=== PATIENT | female | born 1980 | race Caucasian/White ===

== ENCOUNTER 2017-07-21 10:58 | Emergency (ER) | payer MEDICAID ==
[~2017-07-21] VITALS: Ht 162.6 cm; Wt 70.5 kg
[~2017-07-21 10:58] MED LIST: D-ME118S6 PO; HYDR-3498 PO; LEVO500T72 PO; NAPR-260 PO
[2017-07-21 11:02] VITALS: Ht 162.6 cm; Wt 70.5 kg
[2017-07-21 12:40] LABS: URINE BLOOD (Dip) POC Negative (NEGATIVE)
[2017-07-21 12:47] LABS: BASOPHILS % 0.5 % (0.0-2.0); EOSINOPHILS # 0.1 10^3/ul (0.0-0.5); HEMOGLOBIN 12.5 g/dl (12.0-16.0); LYMPHOCYTES # 2.4 10^3/ul (0.8-2.9); LYMPHOCYTES % 37.2 % (15.0-51.0); MEAN CORPUSCULAR HEMOGLOBIN 27.5 pg (29.0-33.0); MEAN CORPUSCULAR HGB CONC 32.9 g/dl (32.0-37.0); MEAN CORPUSCULAR VOLUME 83.5 fl (82.0-101.0); MEAN PLATELET VOLUME 9.8 fl (7.4-10.4); MONOCYTE # 0.5 10^3/ul (0.3-0.9); MONOCYTES % 8.1 % (0.0-11.0); NEUTROPHIL # 3.4 10^3/ul (1.6-7.5); NEUTROPHILS % 51.9 % (39.0-77.0); PLATELET COUNT 272 10^3/UL (140-415); RED BLOOD COUNT 4.55 10^6/ul (4.20-5.40); RED CELL DISTRIBUTION WIDTH 12.4 % (11.5-14.5); WHITE BLOOD COUNT 6.5 10^3/ul (4.8-10.8)
[2017-07-21 13:08] LABS: ALBUMIN 4.6 g/dl (3.3-4.9); ALBUMIN/GLOBULIN RATIO 1.35; BILIRUBIN,INDIRECT 0.3 mg/dl (0-1.1); BILIRUBIN,TOTAL 0.3 mg/dl (0.2-1.3); CALCIUM 9.1 mg/dl (8.4-10.2); CREATININE 0.62 mg/dl (0.44-1.00)
--- NOTE | 2017-07-21 13:37 | RADRPT ---
PROCEDURE: US Abdomen (right upper quadrant). CLINICAL INDICATION: Right upper quadrant abdomen pain. TECHNIQUE: Multiple real-time longitudinal and transverse images of the right upper quadrant of th e abdomen were acquired utilizing a curved array transducer. Images were reviewed on a high-resoluti on PACS workstation. COMPARISON: None FINDINGS: The liver is normal in size and normal in echogenicity. There is no focal hepatic lesion. Color Doppler and pulsed Doppler sonography demonstrate normal a ntegrade flow in the portal vein. The gallbladder is surgically absent. The bile ducts are normal with the common bile duct measuring 5.8 mm in diameter. The visualized portions of the pancreas are unremarkable with obscuration of the tail of the pancrea s. No free fluid is present. The right kidney measures 12.0 cm. There is normal echogenicity of the right kidney. There is no perinephric fluid collection. No hydronephrosis, mass, or calculus is seen. IMPRESSION: 1. Status post cholecystectomy. 2. Otherwise normal right upper quadrant abdomen ultrasound. RPTAT: QQ .Lopez Ho MD, MD Date Time Electronically viewed and signed by .Lopez Ho MD, on 07/21/2017 13:37 .R/
--- NOTE | 2017-07-21 14:17 | ERD ---
ER Documentation Chief Complaint Date/Time DATE: 07/21/17 TIME: 14:09 Chief Complaint r.side abd pain x 5 days, denies pain with urination HPI 37 y/o female with history of cholecystectomy, present to ER, c/o sharp pain in RUQ, that has been present for more than 2 months but got worse during the last 5 days. Pain is worse after fatty meals, no radiation, no treatment attempted. Denies fever, chills, no diarrhea, melena, no nausea or vomiting ROS All systems reviewed and are negative except as per history of present illness. Medications Home Meds Active Scripts Ranitidine Hcl* (Zantac*) 150 Mg Tablet, 150 MG PO BID Y for EPIGASTRIC PAIN, # 30 TAB Prov:ENEDELIA LEE MD 07/21/17 Ibuprofen* (Motrin*) 600 Mg Tab, 600 MG PO Q8 Y for PAIN, #30 TAB Prov:ENEDELIA LEE MD 07/21/17 Dextromethorphan Hb-Promethazine Hcl (Promethazine DM Syrup) 180 Ml Syrup, 5 ML PO Q6H Y for COUGH, #4 OZ Prov:RUTH PORTILLO DO 11/29/15 Naproxen* (Naprosyn*) 500 Mg Tablet, 500 MG PO BID Y for PAIN AND/OR INFLAMMATION, #14 TAB Prov:RUTH PORTILLO DO 11/29/15 Hydrocodone Bit-Acetaminophen* (Dora*) 5-325 Mg Tab, 1 TAB PO Q6 Y for PAIN, # 7 TAB Prov:RUTH PORTILLO DO 11/29/15 Levofloxacin* (Levaquin*) 500 Mg Tablet, 500 MG PO DAILY for 7 Days, TAB Prov:RUTH PORTILLO DO 11/29/15 Allergies Allergies: Coded Allergies: No Known Allergy (Verified Allergy, Unknown, 12/09/09) PMhx/Soc Denies hx of DM, HTN, CAD Medical and Surgical Hx: pt denies Medical Hx, pt denies Surgical Hx Hx Alcohol Use: No Hx Substance Use: No Hx Tobacco Use: No Smoking Status: Never smoker Physical Exam Vitals Physical Exam Alert, in no distress Resp: Clear to auscultation bilaterally Cardio: Regular rate and rhythm, no murmurs Abd: Soft, mild tenderness to deep palpation in RUQ, non distended. Normal bowel sounds. Ramsay negative, no peritoneal signs Back: No midline or flank tenderness Ext: No cyanosis, or edema Results 24 hrs Laboratory Tests Test 07/21/17 12:30 07/21/17 12:48 White Blood Count 6.510^3/ul Red Blood Count 4.5510^6/ul Hemoglobin 12.5g/dl Hematocrit 38.0% Mean Corpuscular Volume 83.5fl Mean Corpuscular Hemoglobin 27.5pg Mean Corpuscular Hemoglobin Concent 32.9g/dl Red Cell Distribution Width 12.4% Platelet Count 78869^3/UL Mean Platelet Volume 9.8fl Neutrophils % 51.9% Lymphocytes % 37.2% Monocytes % 8.1% Eosinophils % 2.0% Basophils % 0.5% Nucleated Red Blood Cells % 0.0/100WBC Neutrophils # 3.410^3/ul Lymphocytes # 2.410^3/ul Monocytes # 0.510^3/ul Eosinophils # 0.110^3/ul Basophils # 0.010^3/ul Nucleated Red Blood Cells # 0.010^3/ul Sodium Level 140mmol/L Potassium Level 4.0mmol/L Chloride Level 107mmol/L Carbon Dioxide Level 24mmol/L Anion Gap 13 Blood Urea Nitrogen 18mg/dl Creatinine 0.62mg/dl Glucose Level 90mg/dl Calcium Level 9.1mg/dl Total Bilirubin 0.3mg/dl Direct Bilirubin 0.00mg/dl Indirect Bilirubin 0.3mg/dl Aspartate Amino Transf (AST/SGOT) 30IU/L Alanine Aminotransferase (ALT/SGPT) 32IU/L Alkaline Phosphatase 62IU/L Total Protein 8.0g/dl Albumin 4.6g/dl Globulin 3.40g/dl Albumin/Globulin Ratio 1.35 Lipase 82U/L Bedside Urine pH (LAB) 5.5 Bedside Urine Protein (LAB) 1+ Bedside Urine Glucose (UA) Negative Bedside Urine Ketones (LAB) Negative Bedside Urine Blood Negative Bedside Urine Nitrite (LAB) Negative Bedside Urine Leukocyte Esterase (L Trace Procedures/MDM Abdominal pain: low suspicion for acute abdomen. Labs reviewed. US abdomen: IMPRESSION: 1. Status post cholecystectomy. 2. Otherwise normal right upper quadrant abdomen ultrasound. Results d/w patient, start conservative management and f/u with PCP in 2-4 days Departure Diagnosis: Primary Impression: Abdominal pain Additional Impression: Hx of cholecystectomy Patient Instructions: Abdominal Pain ENEDELIA LEE MD Jul 21, 2017 14:17
[2017-07-21] MEDS ORDERED: RANI150T9 PO (14:20)
[2017-07-21] MEDS ORDERED: IBUP-1542 PO (14:20)
[2017-07-21 14:39] VITALS: BP 122/74; PULSE 79; RESP 18; TEMP 98.5
== END 2017-07-21 14:40 | disposition home or self-care (01) ==
LOC: FTE 10:58
DX: R10.11 Right upper quadrant pain (principal); Z90.49 Acquired absence of other specified parts of digestive tract
CPT/HCPCS: 76705; 80053; 81003; 83690; 85025; Z7502

== ENCOUNTER 2018-04-05 07:28 | Emergency (ER) | END 2018-04-05 10:27 | disposition home or self-care (01) ==

== ENCOUNTER 2018-10-07 06:06 | Emergency (ER) | END 2018-10-07 08:16 | disposition home or self-care (01) ==

== ENCOUNTER 2019-01-22 06:16 | Emergency (ER) | payer MEDICAID ==
[~2019-01-22] VITALS: Ht 162.6 cm; Wt 74.0 kg
[~2019-01-22 06:16] MED LIST changes: +ACET325T33 PO; +CIPR500T4 PO; +DOCU-144 PO; +IBUP-1542 PO; +LEVO500T48 PO; -LEVO500T72 PO; -NAPR-260 PO; +NAPR-985 PO; +NITR-58 PO; +RANI150T35 PO
[2019-01-22 06:20] VITALS: Ht 162.6 cm; Wt 74.0 kg
--- NOTE | 2019-01-22 06:54 | ERD ---
ER Documentation Chief Complaint Chief Complaint ap HPI The patient is a 38-year-old female, presenting to the ER because of right upper quadrant abdominal pain radiating to the right upper back intermittently that began yesterday morning. She had similar symptoms previously, denies fever, chills, neck pain, chest pain, dyspnea, vomiting, dysuria, diarrhea. She does not smoke, drink Past medical history: None Past surgical history: Cholecystectomy in 2002 ROS All systems reviewed and are negative except as per history of present illness. Medications Home Meds Active Scripts Ibuprofen* (Motrin*) 600 Mg Tab, 600 MG PO Q6H PRN for PAIN, #20 TAB Prov:KAY MONSIVAIS MD 01/22/19 Nitrofurantoin Monohyd Macrocr* (Macrobid*) 100 Mg Capsr, 100 MG PO BID for 14 Days, CAP Prov:RICHAR GONZALEZ PA-C 10/07/18 Acetaminophen* (Tylenol*) 325 Mg Tablet, 2 TAB PO Q6 PRN for PAIN AND OR ELEVATED TEMP, #20 TAB Prov:RICHAR GONZALEZ PA-C 10/07/18 Docusate Sodium* (Colace*) 100 Mg Capsule, 100 MG PO TID, #30 CAP Prov:RICHAR GONZALEZ PA-C 10/07/18 Acetaminophen* (Tylenol*) 325 Mg Tablet, 2 TAB PO Q6 PRN for PAIN AND OR ELEVATED TEMP, #20 TAB Prov:RICHAR GONZALEZ PA-C 04/05/18 Ciprofloxacin Hcl* (Ciprofloxacin Hcl*) 500 Mg Tablet, 500 MG PO BID for 7 Days, TAB Prov:RICHAR GONZALEZ PA-C 04/05/18 Ranitidine Hcl* (Zantac*) 150 Mg Tablet, 150 MG PO BID PRN for EPIGASTRIC PAIN, #30 TAB Prov:ENEDELIA LEE MD 07/21/17 Ibuprofen* (Motrin*) 600 Mg Tab, 600 MG PO Q8 PRN for PAIN, #30 TAB Prov:ENEDELIA LEE MD 07/21/17 Dextromethorphan Hb-Promethazine Hcl (Promethazine DM Syrup) 180 Ml Syrup, 5 ML PO Q6H PRN for COUGH, #4 OZ Prov:RUTH PORTILLO DO 11/29/15 Naproxen* (Naprosyn*) 500 Mg Tablet, 500 MG PO BID PRN for PAIN AND/OR INFLAMMAT ION, #14 TAB Prov:RUTH PORTILLO DO 11/29/15 Hydrocodone Bit-Acetaminophen* ([place]*) 5-325 Mg Tab, 1 TAB PO Q6 PRN for PAIN, #7 TAB Prov:RUTH PORTILLO DO 11/29/15 Levofloxacin* (Levaquin*) 500 Mg Tablet, 500 MG PO DAILY for 7 Days, TAB Prov:RUTH PORTILLO DO 11/29/15 Allergies Allergies: Coded Allergies: No Known Allergy (Verified , 01/22/19) PMhx/Soc Hx Alcohol Use: No Hx Substance Use: No Hx Tobacco Use: No Physical Exam Vitals Vital Signs Date Temp Pulse Resp B/P (MAP) Pulse Ox O2 O2 Flow FiO2 Time Delivery Rate 01/22/19 60 20 133/75 98 06:20 (94) Physical Exam Const: No acute distress. Head: Atraumatic. Eyes: Normal Conjunctiva. ENT: Normal External Ears, Nose and Mouth. Neck: Full range of motion. No meningismus. Resp: Clear to auscultation bilaterally. Cardio: Regular rate and rhythm. Abd: Soft, non distended, normal bowel sounds, mild right upper quadrant and right upper back discomfort, no right lower quadrant, rigidity, rebound tenderness Skin: No petechiae or rashes. Back: No midline or flank tenderness. Ext: No cyanosis, or edema. Neur: Awake and alert. No focal deficit Psych: Normal Mood and Affect. Result Diagram: 01/22/19 0704 01/22/19 0704 Results 24 hrs Laboratory Tests Test 01/22/19 07:02 01/22/19 07:04 Bedside Urine pH (LAB) 5.5 Bedside Urine Protein (LAB) Negative Bedside Urine Glucose (UA) Negative Bedside Urine Ketones (LAB) Negative Bedside Urine Blood Negative Bedside Urine Nitrite (LAB) Negative Bedside Urine Leukocyte Esterase (L Trace White Blood Count 5.4 10^3/ul Red Blood Count 4.33 10^6/ul Hemoglobin 11.8 g/dl Hematocrit 36.0 % Mean Corpuscular Volume 83.1 fl Mean Corpuscular Hemoglobin 27.3 pg Mean Corpuscular Hemoglobin Concent 32.8 g/dl Red Cell Distribution Width 12.3 % Platelet Count 261 10^3/UL Mean Platelet Volume 9.4 fl Immature Granulocytes % 0.400 % Neutrophils % 52.9 % Lymphocytes % 34.7 % Monocytes % 8.8 % Eosinophils % 2.8 % Basophils % 0.4 % Nucleated Red Blood Cells % 0.0 /100WBC Immature Granulocytes # 0.020 10^3/ul Neutrophils # 2.9 10^3/ul Lymphocytes # 1.9 10^3/ul Monocytes # 0.5 10^3/ul Eosinophils # 0.2 10^3/ul Basophils # 0.0 10^3/ul Nucleated Red Blood Cells # 0.0 10^3/ul Sodium Level 140 mmol/L Potassium Level 4.0 mmol/L Chloride Level 108 mmol/L Carbon Dioxide Level 26 mmol/L Anion Gap 6 Blood Urea Nitrogen 11 mg/dl Creatinine 0.59 mg/dl Est Glomerular Filtrat Rate mL/min > 60 mL/min Glucose Level 100 mg/dl Calcium Level 9.0 mg/dl Total Bilirubin 0.3 mg/dl Direct Bilirubin 0.00 mg/dl Indirect Bilirubin 0.3 mg/dl Aspartate Amino Transf (AST/SGOT) 23 IU/L Alanine Aminotransferase (ALT/SGPT) 13 IU/L Alkaline Phosphatase 69 IU/L Total Protein 7.2 g/dl Albumin 4.1 g/dl Globulin 3.10 g/dl Albumin/Globulin Ratio 1.32 Lipase 93 U/L POC Beta HCG, Qualitative NEGATIVE Current Medications Medications Dose Sig/[place] Start Time Status Last (Trade) Ordered Route PRN Stop Time Admin Dose Reason Admin Ketorolac 30 mg ONCE STAT 01/22/19 DC 01/22/19 Tromethamine IV 07:32 07:44 (Toradol) 01/22/19 07:39 Morphine 2 mg ONCE STAT 01/22/19 DC 01/22/19 Sulfate IV 09:37 09:48 (morphine) 01/22/19 09:38 Ondansetron 4 mg ONCE STAT 01/22/19 DC 01/22/19 HCl (Zofran IV 09:37 09:48 Inj) 01/22/19 09:38 Procedures/MDM [address] [address] Radiology Main Line: [phone] DIAGNOSTIC IMAGING REPORT Patient: MARISOL JUDGE : 1980 Age: 38 Sex: F MR #: [id number] DOS: 01/22/19 07 Ordering MD: KAY MONSIVAIS MD Location: E/R Room/Bed: PROCEDURE: CT abdomen and pelvis without contrast. CLINICAL INDICATION: Abdominal Pain TECHNIQUE: CT scan of the abdomen and pelvis without contrast was performed and is reconstructed at 2.5 mm contiguous axial intervals from the dome of the diaphragm to the inferior pubic rami.. The patient was scanned without intravenous contrast. Sagittal and coronal reformatted images were obtained from the axial source images. The calculated radiation dose measures 556 mGy centimeters. The CTDI measures 9.4 mGy. Individualized dose optimization technique was used for the performance of this exam. This included 1. Automated exposure control. 2. Adjustment of the mA and / or kV according to the patient's size. 3. Use of iterative reconstructed technique. Dicom images are available COMPARISON: CT abdomen pelvis October 07, 2018 FINDINGS: The lung bases are clear of any infiltrate or nodule. No effusion is seen. The liver is of normal size, contour and attenuation with no mass or ductal dilatation. Gallbladder has been removed. No splenic, adrenal or pancreatic abnormalities present. Kidneys are of normal size and contour. No hydronephrosis, calculus or masses seen. Ureters are of normal course and caliber with no stone. No bladder mass or stone is present. Uterus is normal. No adnexal mass is seen. There is no aneurysm. No adenopathy is present. No bowel mass or obstruction is present. The appendix is normal. No phlegmon, ascites or pneumoperitoneum is visualized. The osseous structures are intact. IMPRESSION: No evidence of urolithiasis, obstructive uropathy, diverticulitis or append icitis. Cholecystectomy. .Fermin Wolff MD, MD Date Time Electronically viewed and signed by .Fermin Wolff MD, on 01/22/2019 08:39 .A/ CC: KAY MONSIVAIS MD [phone] MEDICAL MAKING DECISION: The patient is a 38-year-old female, presenting with right-sided abdominal pain of unclear etiology, was treated with Toradol 30 mg IV, morphine 2 mg IV for pain and Zofran 4 mg IV for nausea with good response, is stable for outpatient follow-up The differential diagnoses considered include but are not limited to choledocholithiasis, cholangitis, pancreatitis, hepatitis, gastritis, peptic ulcer disease, gastric ulcer, appendicitis, cystitis, diverticulitis, partial small bowel obstruction. Departure Diagnosis: Primary Impression: Abdominal pain Additional Impression: Anemia Condition: Good Comments She was discharged with Motrin I discussed the findings with the patient. I advised the patient to follow-up with the primary physician in about 2-3 days, sooner if needed and return if any concern. Disclaimer: Inadvertent spelling and grammatical errors are likely due to EHR/dictation software use and do not reflect on the overall quality of patient care. Also, please note that the electronic time recorded on this note does not necessarily reflect the actual time of the patient encounter. KAY MONSIVAIS MD Jan 22, 2019 06:54
[2019-01-22] MEDS ORDERED: KETOROLAC 30 MG INJ IV STA (07:32)
[2019-01-22] MEDS ORDERED: morphine 2 MG INJ IV STA (09:37)
[2019-01-22] MEDS ORDERED: ONDANSETRON 4 MG INJ IV STA (09:37)
[2019-01-22] MEDS ORDERED: IBUP-1542 PO (09:51)
[2019-01-22 12:09] VITALS: BP 112/74; PULSE 68; RESP 18
== END 2019-01-22 12:10 | disposition home or self-care (01) ==
LOC: E/R 06:16
DX: D64.9 Anemia, unspecified (principal)
CPT/HCPCS: 36415; 74176; 80053; 81003; 81025; 83690; 85025; 96374; 96375; J1885; J2270; J2405; Z7502